=== PATIENT | female | born 1940 | race Caucasian/White ===

== ENCOUNTER → 2016-12-31 | Emergency (ER) | payer MEDICARE ==
[~2016-12-31] MED LIST: ASPIRIN 81MG TA81 MG PO; AVELOX400 MG PO; BENZONATATE100 MG PO; COREG 6.25MG6.25 MG PO; DILTIAZEM HCL180 MG PO; HYDROCHLOROTHIA25 M1 PO; LORTAB 5/500 501 TAB PO; LOSARTAN POTASS1 TA1 PO; PHENERGAN 25MG.25 M1 PO; SYNTHROID 0.0.125 MG PO
--- OUTSIDE RECORDS SUMMARY | 2016-12-31 10:19 | External Medical Summary Rpt ---
Author Author [employer] Organization [employer] Address Unknown Phone Unavailable Purpose Continuity of Care Document - through 2016
--- OUTSIDE RECORDS SUMMARY | 2016-12-31 10:19 | External Medical Summary Rpt ---
Author Author , Organization [employer] Address Unknown Phone Unavailable Purpose Continuity of Care Document - through 2016
--- OUTSIDE RECORDS SUMMARY | 2016-12-31 10:20 | External Medical Summary Rpt ---
Author Author , Organization [employer] Address Unknown Phone Unavailable Purpose Continuity of Care Document - 09-29-1996 through 2016 Immunization Name Date Route CVX Reacti Commen Provid Is Given on t er Refuse d PPV23 Histor H201 No 2009 ical Inform ation - Source Unspec ified Td Histor H149 No (adult 1996 ical ), Inform adsorb ation ed - Source Unspec ified
--- OUTSIDE RECORDS SUMMARY | 2016-12-31 10:20 | External Medical Summary Rpt ---
Author Author [employer], [employer] Organization [employer] Address Unknown Phone Unavailable
== END ==
LOC: UTC 10:14
DX: Z53.29 Procedure and treatment not carried out because of patient's decision for other reasons (principal)

== ENCOUNTER → 2017-07-04 | Outpatient (CLI) | payer MEDICARE ==
--- NOTE | 2017-07-10 16:47 | RADIOLOGY REPORT PS360 ---
DIG MAMM-SCREEN NARENDRA W/CAD CAD Screening COMPARISON: Digital mammograms 06/14/2016 and 05/30/2015 INDICATION: There is a history of breast cancer in patient's daughter diagnosed at age 40 and in the patient's niece. There has been a previous biopsy left breast. TECHNIQUE: Standard CC and MLO images were obtained. R2 CAD reviewed. FINDINGS: Again noted is a diffusely dense and heterogenic parenchymal pattern lessening the sensitivity of mammography. There are mole markers on each breast. There are few scattered benign-appearing calcifications in each breast. There is no new or suspicious lesion in either breast and there are no suspicious microcalcifications. IMPRESSION: Stable exam with dense parenchymal pattern no suspicious lesion seen recommend yearly follow-up BI-RADS CATEGORY: 2_Benign RECOMMENDED FOLLOWUP: 12M 12 MONTH FOLLOW-UP (A letter has been sent to the patient regarding results of the study.)
== END ==
LOC: RAD 09:20
DX: Z12.31 Encounter for screening mammogram for malignant neoplasm of breast (principal)
CPT/HCPCS: G0202